=== PATIENT | male | born 1965 | race Caucasian/White ===

== ENCOUNTER 2021-06-18 11:37 | Emergency (ER) | payer OTHER ==
[~2021-06-18] VITALS: Ht 182.9 cm; Wt 91.3 kg
--- NOTE | 2021-06-18 11:55 | NUR ---
TESTED POSITIVE FOR COVID THIS WEEK. WORSENIG FATIGUE AND SOB POX 92% WITH WALKING, FREQUENT DRY COUGH
[2021-06-18 12:49] VITALS: BP 127/80
== END 2021-06-18 12:51 | disposition home or self-care (01) ==
LOC: ED 12:20
DX: U07.1 COVID-19 (principal); J06.9 Acute upper respiratory infection, unspecified; B34.9 Viral infection, unspecified; R07.89 Other chest pain
CPT/HCPCS: 71045; 93005; 99283